=== PATIENT | female | born 1990 | race Caucasian/White ===

== ENCOUNTER 2016-09-01 17:48 | Inpatient (IN) | END 2016-09-11 14:15 | disposition home health service (06) | DRG 565 | DX: Q65.89 Other specified congenital deformities of hip (principal); Q87.1 Congenital malformation syndromes predominantly associated with short stature; D64.9 Anemia, unspecified; R00.0 Tachycardia, unspecified; R52 Pain, unspecified; F39 Unspecified mood [affective] disorder; Z79.82 Long term (current) use of aspirin; D50.9 Iron deficiency anemia, unspecified; M79.89 Other specified soft tissue disorders ==